=== PATIENT | male | born 2000 | race Caucasian/White ===

== ENCOUNTER → 2021-07-10 11:00 | Outpatient (BNVA) | payer OTHER, SELFPAY | PROVIDERS: Visit Provider Nurse Practitioner Family | DX: R07.9 Chest pain, unspecified (principal); R53.83 Other fatigue; Z13.6 Encounter for screening for cardiovascular disorders; Z79.899 Other long term (current) drug therapy; E55.9 Vitamin D deficiency, unspecified | CPT/HCPCS: 80053; 80061; 81003; 82306; 82552; 83036; 84439; 84443; 84481; 85025 ==

== ENCOUNTER 2021-07-15 12:58 | Outpatient (CLI) | payer OTHER, SELFPAY ==
--- NOTE | 2021-07-15 13:30 | USCV_ITS ---
Daren Cornejo Age: 20 Gender: M : 2000 Exam Date: 07/15/2021 13:39 Ordering Phys: GRETEL Ordonez APRNP Technologist: Aurelia Everett Exam Location: [facility] – [place] Indication: TACHYCARDIA BP: 130 / 80 HR: 88 Rhythm: Sinus Technical Quality: Adequate MEASUREMENTS (Male / Female) Normal Values 2D ECHO LV Diastolic Diameter PLAX 4.9 cm 4.2 - 5.9 / 3.9 - 5.3 cm LV Systolic Diameter PLAX 3.1 cm LV Chamber Size 5.0 cm IVS Diastolic Thickness 1.0 cm 0.6 - 1.0 / 0.6 - 0.9 cm IVS Systolic Thickness 1.3 cm LVPW Diastolic Thickness 1.3 cm 0.6 - 1.0 / 0.6 - 0.9 cm LVPW Systolic Thickness 1.5 cm RV Chamber Size 3.8 cm LVOT Diameter 2.0 cm LV Ejection Fraction 2D Teich 65.0 % LV Ejection Fraction MOD 2C 69.0 % LV Ejection Fraction 2C AL 70.6 % LA Diameter 3.3 cm LA Width 4.1 cm LA Height 2.6 cm RA Width 4.2 cm RA Height 4.1 cm Aorta at Sinotubular Diameter 3.1 cm M-MODE LV Diastolic Diameter MM 5.2 cm 4.2 - 5.9 / 3.9 - 5.3 cm LV Systolic Diameter MM 3.6 cm LV Ejection Fraction MM Teich 58.9 % IVS Diastolic Thickness MM 1.4 cm 0.6 - 1.0 / 0.6 - 0.9 cm IVS Systolic Thickness MM 1.7 cm LVPW Diastolic Thickness MM 1.6 cm 0.6 - 1.0 / 0.6 - 0.9 cm LVPW Systolic Thickness MM 1.8 cm Aortic Annulus Diameter 3.9 cm LA Ao Ratio MM 0.8 MV E Point Septal Separation 0.3 cm DOPPLER AV Peak Velocity 127.0 cm/s LVOT Peak Velocity 103.0 cm/s AV Area Cont Eq vti 2.3 cm squared AV Area Cont Eq pk 2.6 cm squared MV Area PHT 2.7 cm squared Mitral E to A Ratio 2.1 MV E' Velocity 45.0 cm/s Mitral E to MV E' Ratio 3.9 Mitral E to LV E' Lateral Ratio 3.1 Mitral E to LV E' Septal Ratio 5.3 TR Peak Velocity 119.3 cm/s TR Peak Gradient 5.7 mmHg TR Mean Velocity 84.6 cm/s TR Mean Gradient 3.1 mmHg TR Velocity Time Integral 23.2 cm TV Peak E Velocity 93.0 cm/s Right Atrial Pressure 3.0 mmHg Pulmonary Artery Systolic Pressu 8.7 mmHg PV Peak Velocity 104.0 cm/s FINDINGS Left Ventricle Normal left ventricular size, systolic function and wall thickness, with no regional wall motion abnormalities. Left ventricular ejection fraction is estimated at 60-65 %. Normal for age diastolic function. Right Ventricle Normal right ventricular size and systolic function. Right ventricular systolic pressure 8.7 mmHg. Right Atrium Normal right atrial size. Right atrial pressure esimated at 3 mm Hg. Left Atrium Normal left atrial size. Mitral Valve Structurally normal mitral valve. No mitral valve stenosis. No mitral valve regurgitation. Aortic Valve Structurally normal trileaflet aortic valve. No aortic valve stenosis. No aortic valve regurgitation. Tricuspid Valve Structurally normal tricuspid valve. No tricuspid valve stenosis. Trace tricuspid valve regurgitation. Pulmonic Valve Structurally normal pulmonic valve. No pulmonary valve stenosis. Trace pulmonary valve regurgitation. Pericardium No pericardial effusion. Aorta Normal size aortic root. Normal sized inferior vena cava with decreased respiratory variation. CONCLUSIONS 1. Normal left ventricular size, systolic function and wall thickness, with no regional wall motion abnormalities. Left ventricular ejection fraction is estimated at 60-65 %. Normal for age diastolic function. 2. Normal right ventricular size and systolic function. 3. No significant valvular abnormality. 4. No pericardial effusion. 5. No intracardiac masses. 6. No prior similar studies to compare. Isabel Gorman MD (Electronically Signed) Final Date: 17 July 2021 06:12 S
== END 2021-07-15 12:59 | disposition home or self-care (01) ==
LOC: RAD 13:01
PROVIDERS: PCP Nurse Practitioner Family; Visit Provider Nurse Practitioner Family
DX: R07.9 Chest pain, unspecified (principal); R00.0 Tachycardia, unspecified
CPT/HCPCS: 93306

== ENCOUNTER 2021-07-16 10:13 | Outpatient (CLI) | payer OTHER, SELFPAY ==
[2021-07-16 10:18] VITALS: BMI 28.5
[2021-07-16 11:56] VITALS: BP 133/57; PULSE 152
--- NOTE | 2021-07-16 11:57 | PC.NURSE ---
pt stated he was very anxious during whole test. couldn't get heart rate down prior to the recovery ending on its own. pt stated it was probably his anxiety.
--- NOTE | 2021-07-16 13:45 | ECG_ITS ---
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 Interpretive Statements NAME OF STUDY: TREADMILL STRESS TEST INDICATION: [Chest Pain, ] EXERCISE DATA: The patient was exercised by Art protocol. Baseline heart rate was 77 beats per minute. Baseline blood pressure was 119/64 millimeters of mercury. Target heart rate was 169 beats per minute. Maximum heart rate achieved was 191, which was 113% of the target heart rate. Maximum blood pressure was 219/47 millimeters of mercury. Total exercise time was 11minutes. Maximum METs achieved was 13.5 maximum VO2 was 47.3. The reason for ending the test was completion of the protocol. The patient complained of shortness of breath during the stress test, which then resolved at the end of the test. ELECTROCARDIOGRAM: BASELINE: Showed sinus rhythm, normal axis, no significant ST-T changes at the baseline noted. [] EXERCISE: At the peak exercise level, [] No significant ST-T changes suggestive of ischemia noted. Occasional PVCs seen[] RECOVERY: During the recovery period, heart rate dropped appropriately. No significant ST-T changes in the recovery suggestive of ischemia noted. [] CONCLUSION: 1. Exercise capacity excellent. 2. Heart rate response was appropriate. 3. Blood pressure response was appropriate. 4. Symptoms not suggestive of ischemia. 5. Stress test is negative for ischemia. Electronically Signed On 07-24-2021 14:07:02 CDT by Mukesh Mccormack M.D. [id number]
== END 2021-07-16 10:14 | disposition home or self-care (01) ==
PROVIDERS: PCP Nurse Practitioner Family; Visit Provider Nurse Practitioner Family
DX: R07.9 Chest pain, unspecified (principal)
CPT/HCPCS: 93017

== ENCOUNTER 2024-09-06 12:56 | Emergency (ER) | payer BC, SELFPAY ==
--- NOTE | 2024-09-06 12:59 | ECG_ITS ---
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 Measurements Intervals [place] Rate: 120 P: 65 WV: 115 QRS: 99 QRSD: 109 T: 14 QT: 351 QTc: 497 Interpretive Statements SINUS TACHYCARDIA WITH SHORT [place]V INTERVAL BORDERLINE RIGHT AXIS DEVIATION [QRS AXIS > 90] NONSPECIFIC T-WAVE ABNORMALITY No previous ECG available for comparison Electronically Signed On 09-06-2024 14:39:41 [employer] by Mukesh Mccormack M.D. [email or web address]
[2024-09-06 13:00] VITALS: BP 174/93; PULSE 115; TEMP 36.8; O2SAT 99; BMI 29.8
== END 2024-09-06 14:32 | disposition left against medical advice (07) ==
PROVIDERS: Emergency Provider Family Medicine; PCP Nurse Practitioner Family
DX: Z53.21 Procedure and treatment not carried out due to patient leaving prior to being seen by health care provider (principal)
CPT/HCPCS: 93005